=== PATIENT | female | born 1985 | race Caucasian/White ===

== ENCOUNTER → 2017-01-21 | Outpatient (CLI) | payer OTHER | LOC: KOH-I 01-13 11:00 | DX: R10.32 Left lower quadrant pain (principal) | CPT/HCPCS: 72192 ==

== ENCOUNTER 2022-01-20 09:39 | Emergency (ER) | payer OTHER ==
[2022-01-20 11:15] LABS: HEMOGLOBIN 15.6 gm/dl (12.3-15.3); RED BLOOD COUNT 4.98 M/UL (4.00-5.10); WHITE BLOOD COUNT 12.1 K/UL (4.5-11.0)
[2022-01-20 11:26] LABS: BUN/CREATININE RATIO 18 (0-10)
[2022-01-20] MEDS ORDERED: ONDANSETRON ODT4 MG SL (15:31)
[2022-01-20] MEDS ORDERED: PROTONIX40 MG PO (15:31)
== END 2022-01-20 15:50 | disposition home or self-care (01) ==
LOC: ER1 09:39
PROVIDERS: Physician Assistant
DX: N83.201 Unspecified ovarian cyst, right side (principal); R11.2 Nausea with vomiting, unspecified; R19.7 Diarrhea, unspecified; R07.89 Other chest pain
CPT/HCPCS: 80053; 81001; 82550; 82553; 83690; 83735; 84484; 84703; 85025; 93005; 96374; 96375; 99285; C9113; J2405; Q9967

== ENCOUNTER 2022-01-30 11:09 | Emergency (ER) | payer OTHER ==
[~2022-01-30 11:09] MED LIST: ONDANSETRON ODT4 MG SL; PROTONIX40 MG PO
[2022-01-30 12:26] LABS: HEMOGLOBIN 15.7 gm/dl (12.3-15.3); RED BLOOD COUNT 5.05 M/UL (4.00-5.10); WHITE BLOOD COUNT 15.7 K/UL (4.5-11.0)
[2022-01-30 12:50] LABS: BUN/CREATININE RATIO 15 (0-10)
[2022-01-30] MEDS ORDERED: ZOFRAN 4 MG TAB4 MG PO (14:53)
[2022-01-30] MEDS ORDERED: REGLAN10 MG PO (14:53)
== END 2022-01-30 15:24 | disposition home or self-care (01) ==
LOC: ER1 11:09
PROVIDERS: Physician Assistant
DX: R11.2 Nausea with vomiting, unspecified (principal); R19.7 Diarrhea, unspecified; Z90.710 Acquired absence of both cervix and uterus
CPT/HCPCS: 80053; 81001; 83690; 85025; 96374; 96375; 99284; J1200; J2405; J2765